=== PATIENT | female | born 1965 | race Caucasian/White ===

== ENCOUNTER 2019-08-14 16:10 | Emergency (ER) | payer OTHER ==
[~2019-08-14] VITALS: Ht 162.6 cm; Wt 90.7 kg
[2019-08-14] MEDS ORDERED: SUDOGEST30 MG PO (19:11)
[2019-08-14 19:36] VITALS: BP 123/77
== END 2019-08-14 20:15 | disposition home or self-care (01) ==
LOC: ER 16:10
DX: R51 Headache (principal); J45.909 Unspecified asthma, uncomplicated; Z87.891 Personal history of nicotine dependence